=== PATIENT | male | born 1970 | race Caucasian/White ===

== ENCOUNTER 2018-03-19 08:18 | Day surgery (SDC) | payer BC ==
[2018-03-17 10:57] VITALS: BMI 33.0
[~2018-03-19 08:18] MED LIST: LACTATED RINGERS 1,000 ML IV SCH
[2018-03-19 08:56] VITALS: TEMP 97.3
[2018-03-19] MEDS ORDERED: LIDOCAINE 1% 20 ML VIAL (10MG/ML) FOR IV START INTRADERMA ONE (09:06)
[2018-03-19] MEDS ORDERED: LIDOCAINE 1% INJ 10MG/ML (20 ML MDV) ONE (09:36)
[2018-03-19] MEDS ORDERED: PROPOFOL 10 MG/ML 20 ML VIAL IV ONE (09:36)
--- NOTE | 2018-03-19 09:59 | P.PCN ---
Date of Procedure: 03/19/18 Procedure(s) Performed: Procedure: Total colonoscopy. Preoperative diagnosis: Screening for neoplasia.. Postoperative diagnosis: Exam within normal limits. Preparation: HalfLytely prep. Sedation: Was provided by anesthesia. Brief clinical history: The patient is a 48-year-old male who is scheduled for this evaluation for screening for neoplasia age being his risk factor. He has no abdominal complaints, bleeding or anemia. There is family history in an uncle who developed colon cancer later in life. This would be his first colonoscopy. Procedure: With the patient on his left lateral decubitus position and after informed consent and adequate sedation, the perianal area was inspected and it did not show any fissures or fistulas. There were no masses felt on digital rectal examination. The Olympus CFQ 160L video colonoscope was then inserted in the rectum in the usual fashion and advanced to the cecum. The mucosa appeared healthy. No polyps or tumors were seen or any obvious diverticular disease or other pathology. I retroflexed the endoscope in the rectum before the endoscope was withdrawn. The patient tolerated the procedure well. Plan: The patient was reassured. Will follow up with you as planned and I recommended a repeat exam in 10 years.
[2018-03-19 10:26] VITALS: BP 117/74; PULSE 74; RESP 18
== END 2018-03-19 10:40 | disposition home or self-care (01) ==
LOC: ORWHC2ENDO 08:18
DX: Z12.11 Encounter for screening for malignant neoplasm of colon (principal); Z88.0 Allergy status to penicillin; Z80.0 Family history of malignant neoplasm of digestive organs
CPT/HCPCS: 45378; J2001; J2704

== ENCOUNTER → 2022-10-31 | Outpatient (CLI) | payer BC ==
--- NOTE | 2022-10-31 17:23 | US ---
EXAMINATION TYPE: US venous doppler duplex LE LEFT DATE OF EXAM: 10/31/2022 5:09 PM COMPARISON: NONE CLINICAL HISTORY: R22.42 SWELLING, MASS AND LUMP. Swelling and pain x 1 day. No hx of DVT. SIDE PERFORMED: Left TECHNIQUE: The lower extremity deep venous system is examined utilizing real time linear array sonog alisa with graded compression, doppler sonography and color-flow sonography. VESSELS IMAGED: Common Femoral Vein Deep Femoral Vein Greater Saphenous Vein * Femoral Vein Popliteal Vein Small Saphenous Vein * Proximal Calf Veins (* superficial vessels) Findings: Left lower extremity: No evidence of DVT in veins imaged. IMPRESSION: Negative for DVT, left lower extremity.
--- NOTE | 2022-11-01 07:30 | XR ---
EXAMINATION TYPE: XR foot complete LT DATE OF EXAM: 10/31/2022 5:53 PM INDICATION: Patient age:Male; 52 years old; Reason for study: M79.672 PAIN IN LT FOOT; COMPARISON: None TECHNIQUE: The left foot was examined in the AP, oblique, and lateral projections. FINDINGS: No evidence of any acute osseous pathology. No evidence of soft tissue swelling. Joints are preserve d. IMPRESSION: No evidence of acute fracture.
== END | disposition home or self-care (01) ==
LOC: RADUSWWP 16:40
PROVIDERS: ATTEND Family Medicine
DX: R22.42 Localized swelling, mass and lump, left lower limb (principal)

== ENCOUNTER → 2024-06-24 | Outpatient (CLI) | payer SELFPAY ==
--- NOTE | 2024-06-24 14:11 | CA ---
Stress Echo Report Christian Chan Age: 54 Gender: M : 1970 Exam Date: 06/24/2024 09:17 Exam Location: [facility] Ht (in): 70 Wt (lb): 200 Ordering Physician: Ender Pardo DO Referring Physician: ENDER PARDO,, Mash Preparatory Operator: Maximino Cordova Technologist Procedure CPT: Indication: Z01.818 ENCOUNTER FOR OTHER PREPROCEDURAL EXAMINAT ICD-9 Codes: Rhythm: Patient History: Cardiac Medications: Medications in past 24 hours: Contrast: N/A Stress Results Protocol: Abrahan Total dose(mL): NA Exercise Duration (min:sec): 10:[address] Depression (mm): Angina Score: Gamboa Score: METS: 12.1 Resting HR: 87 Resting BP: 116 / 83 Peak HR: 166 Peak BP: 196 / 88 Max Predicted HR: 164 101 % Max Predicted HR Target HR: 139 Double Product: [id number] Stress Summary: BP Response: Reason for Termination: Maximal effort/unable to continue Cardiac Symptoms: no symptoms ECG Analysis Resting ECG: Stress ECG: Arrhythmia: Echo Analysis Resting Echo: Peak Echo Analysis: MEASUREMENTS (Male/Female) Normal Values CONCLUSIONS Patient underwent exercise stress echo with a Abrahan protocol treadmill stress test. Patient exercised into Stage 4 for a total of 10 minutes and 50 seconds reaching a total of 12.1 METS. Patient's maximum heart rate was 166 which represented 100 % age-predicted maximum heart rate. Stress EKG portion: At baseline patient's EKG showed normal sinus rhythm, normal axis, no significant ST or T wave abnormalities. At peak exercise, EKG showed no significant change from baseline. Stress echo portion: 2-D echocardiogram was performed in the parasternal long, personal short, apical 2 and apical four-chamber views at rest, peak exercise and in recovery. At baseline, echocardiogram showed left ventricular ejection fraction 55% without wall motion abnormalities. With peak exercise, echocardiogram shows improvement in left ventricular ejection fraction, increase contractility, decrease in left ventricular end systolic dimension without wall motion abnormalities consistent with a normal response to exercise. Conclusions: 1. Normal EKG and echo response to exercise without evidence of inducible ischemia. 2. Good exercise capacity. Dr. Carlos Sheppard DO (Electronically Signed) Final Date: 24 June 2024 14:10
== END | disposition home or self-care (01) ==
LOC: RADNMMAIN 08:36
PROVIDERS: ATTEND Family Medicine
DX: Z01.818 Encounter for other preprocedural examination (principal)
CPT/HCPCS: 93351